=== PATIENT | female | born 1955 | race Caucasian/White ===

== ENCOUNTER 2024-10-19 05:09 | Observation (INO) ==
[2024-10-19 05:22] VITALS: BMI 28.0
--- NOTE | 2024-10-19 05:39 | DR.CP ---
HPI Time Seen Time Seen by Provider: 10/19/24 05:37 PCP Primary Care Physician: Cynthia HPI Comment HPI Comment: See orders as below. Complaint Chief Complaint Doctor Comments: Patient is a 68-year-old female in the emergency room right upper quadrant and epigastric pain since 1130 last night. Patient said pain is associated with nausea. Patient is also having lower abdominal pain for one and half week. She denies fever or dysuria. Chief Complaint:: pt ambulatory in ed with complaints of ruq pain/epigastric pain since last night around 11:30, started as indigestion and has increasingly gotten worse and has began vomiting. pt also reports lower back pain into her hips. COVID-19 Coronavirus risk:travel/contact w/high risk person: No Has patient experienced Coronavirus symptoms: No Source History Provided: Patient Mode of Arrival Mode of Arrival: Ambulatory Timing Onset of Chief Complaint: 10/18/24 PMH PMH Past Medical History: No Past Surgical History: Yes Surgical History: [employer] Surgery and Hysterectomy Family History History of Family Medical Conditions: Yes Family Medical History: Cancer and Hypertension Travel Risk Coronavirus risk:travel/contact w/high risk person: No Has patient experienced Coronavirus symptoms: No Infectious screening Have you traveled outside the country in the last 6 months?: No Isolation: Standard ROS Review of Systems Constitutional: No Symptoms Reported and Diaphoresis Eyes: No Symptoms Reported ENTM: No Symptoms Reported Respiratoy: No Symptoms Reported Cardiovascular: No Symptoms Reported Gastrointestinal/Abdominal: Abdominal Pain, Nausea and Vomiting Genitourinary: No Symptoms Reported; negative Dysuria Neurological: No Symptoms Reported; negative Headache or Dizziness Musculoskeletal: Back Pain (lower back pain.) Integumentary: No Symptoms Reported and See HPI Hematologic/Lymphatic: No Symptoms Reported Endocrine: No Symptoms Reported Psychiatric: No Symptoms Reported All Other Systems: Reviewed and Negative PE Vitals Vitals: Vital Signs Temperature 97.6 F Pulse Rate 63 Pulse Rate 69 Pulse Rate 76 Pulse Rate 67 Pulse Rate 66 Pulse Rate 65 Pulse Rate 73 Pulse Rate 81 Pulse Rate 66 Pulse Rate 67 Pulse Rate 80 Pulse Rate 65 Pulse Rate 76 Pulse Rate 68 Pulse Rate 70 Pulse Rate 97 Respiratory Rate 18 Respiratory Rate 29 Respiratory Rate 27 Respiratory Rate 22 Respiratory Rate 22 Respiratory Rate 32 Respiratory Rate 16 Respiratory Rate 18 Respiratory Rate 18 Respiratory Rate 24 Respiratory Rate 23 Respiratory Rate 23 Respiratory Rate 20 Blood Pressure 157/70 Blood Pressure 161/78 Blood Pressure 165/73 Blood Pressure 165/73 Blood Pressure 165/73 Blood Pressure 159/75 Blood Pressure 180/72 Blood Pressure 188/86 Blood Pressure 184/79 Blood Pressure 191/91 O2 Sat by Pulse Oximetry 96 O2 Sat by Pulse Oximetry 97 O2 Sat by Pulse Oximetry 96 O2 Sat by Pulse Oximetry 97 O2 Sat by Pulse Oximetry 95 O2 Sat by Pulse Oximetry 96 O2 Sat by Pulse Oximetry 96 O2 Sat by Pulse Oximetry 94 O2 Sat by Pulse Oximetry 97 O2 Sat by Pulse Oximetry 97 O2 Sat by Pulse Oximetry 98 O2 Sat by Pulse Oximetry 96 O2 Sat by Pulse Oximetry 98 O2 Sat by Pulse Oximetry 97 O2 Sat by Pulse Oximetry 98 O2 Sat by Pulse Oximetry 97 General Limitations: No Limitations General Appearance: Alert and In No Apparent Distress Head Head Exam: Normal Inspection Eyes Eye exam: Normal Appearance; negative Scleral Icterus or Conjunctival Injection ENT ENT Exam: Normal Exam, Normal Oropharynx, Normal External Ear Exam and TM's Normal Bilaterally Chest Chest Inspection: Normal Inspection and Symmetric Chest Wall Rise; negative Tenderness Respiratory Respiratory Exam: Normal Lung Sounds Bilat; negative Accessory Muscle Use, Chest Wall Tenderness or Respiratory Distress Respiratory Exam: Bilateral: Clear to Auscultation Cardiovascular Cardiovascular Exam: Regular Rate, Normal Rhythm and Normal Heart Sounds; negative Systolic Murmur or Diastolic Murmur Abdominal Exam Abdominal Exam: Normal Bowel Sounds, Soft and Tenderness Abdominal Tenderness: RUQ, Epigastrium and Moderate Extremities Extremities Exam: Normal Inspection and Normal Capillary Refill Back Back Exam: Normal Inspection; negative (R) CVA Tenderness or (L) CVA Tenderness Neurologic Neurological Exam: Alert and Oriented X3; negative Motor Sensory Deficit Psychiatric Psychiatric Exam: Normal Affect and Normal Mood Skin Skin Exam: Warm and Intact MDM Differential Diagnosis Differential Diagnosis: Gastritis (Abd pain, cholelithiasis, cholecystitis, lower back pain, UTI.) COURSE Treatment Treatment: See orders done while patient was in ER, Patient with gall stone. surgery consult obtained. She will be admitted to hospital for further management. Consultation Consultation Comments: surgery consult with dr. AGUDELO. HE WILL ADMIT PATIENT. Education/Counseling Education/Counseling: Patient and Family Educated On: Treatment and Diagnosis ROR Labs Reviewed Laboratory Results Reviewed?: Yes 10/19/24 05:35 10/19/24 05:35 Laboratory: WBC 14.3 X10^3/uL (3.6-10.0) H 10/19/24 05:35 RBC 5.59 X10^6/uL (3.5-5.4) H 10/19/24 05:35 Hgb 17.4 g/dL (12.0-16.0) H 10/19/24 05:35 Hct 50.4 % (36.0-47.0) H 10/19/24 05:35 MCV 90.2 fL (80.0-100.0) 10/19/24 05:35 MCH 31.2 pg (27.0-34.0) 10/19/24 05:35 MCHC 34.6 g/dL (33.0-35.0) 10/19/24 05:35 RDW 13.6 % (11.6-16.5) 10/19/24 05:35 Plt Count 366 X10^3/uL (150.0-450.0) 10/19/24 05:35 MPV 10.6 fL (7.4-11.0) 10/19/24 05:35 Neut % (Auto) 89.7 % (42.0-75.0) H 10/19/24 05:35 Lymph % (Auto) 7.6 % (21.0-51.0) L 10/19/24 05:35 [place] % (Auto) 1.8 % (0.0-13.0) 10/19/24 05:35 Eos % (Auto) 0.1 % (0.9-2.9) L 10/19/24 05:35 Baso % (Auto) 0.8 % (0.2-1.0) 10/19/24 05:35 Neut # (Auto) 12.8 x10^3/uL (2.2-4.8) H 10/19/24 05:35 Lymph # (Auto) 1.1 X10^3/uL (1.3-2.9) L 10/19/24 05:35 [place] # (Auto) 0.3 x10^3/uL (0.3-0.8) 10/19/24 05:35 Eos # (Auto) 0.0 x10^3/uL (0.0-0.2) 10/19/24 05:35 Baso # (Auto) 0.1 X10^3/uL (0.0-0.1) 10/19/24 05:35 Absolute Nucleated RBC 0.1 /100WBC 10/19/24 05:35 Sodium 139 mmol/L (136-145) 10/19/24 05:35 Corrected Sodium 140 mmol/L (136-145) 10/19/24 05:35 Potassium 3.6 mmol/L (3.5-5.1) 10/19/24 05:35 Chloride 102 mmol/L (98-107) 10/19/24 05:35 Carbon Dioxide 28.4 mmol/L (21-32) 10/19/24 05:35 BUN 12 mg/dL (7-18) 10/19/24 05:35 Creatinine 0.66 mg/dL (0.55-1.02) 10/19/24 05:35 Est GFR (MDRD) Af Amer > 60 (>60) 10/19/24 05:35 Est GFR (MDRD) Non-Af > 60 (>60) 10/19/24 05:35 Glucose 142 mg/dL (65-99) H 10/19/24 05:35 Calcium 9.3 mg/dL (8.5-10.1) 10/19/24 05:35 Corrected Calcium TNP 10/19/24 05:35 Total Bilirubin 0.50 mg/dL (0.2-1.0) 10/19/24 05:35 AST 12 Units/L (15-37) L 10/19/24 05:35 ALT 18 Units/L (12-78) 10/19/24 05:35 Alkaline Phosphatase 116 Units/L (46-116) 10/19/24 05:35 Creatine Kinase 49 Units/L (26-192) 10/19/24 05:35 Troponin I High Sens 6.9 ng/L (4.0-60.0) 10/19/24 05:35 Total Protein 9.6 g/dL (6.4-8.2) H 10/19/24 05:35 Albumin 4.3 g/dL (3.4-5.0) 10/19/24 05:35 Globulin 5.3 g/dL (2.5-4.5) H 10/19/24 05:35 Albumin/Globulin Ratio 0.8 Ratio (1.1-2.1) L 10/19/24 05:35 Amylase 47 Units/L (25-115) 10/19/24 05:35 Lipase 35 Units/L (16-77) 10/19/24 05:35 Specimen Type Clean catch urine 10/19/24 05:35 Urine Color Pale yellow (YELLOW) 10/19/24 05:35 Urine Appearance Clear (CLEAR) 10/19/24 05:35 Urine pH 7.0 (5.0 - 8.0) 10/19/24 05:35 Ur Specific [place] 1.015 (1.000-1.030) 10/19/24 05:35 Urine Protein 2+ (NEGATIVE) 10/19/24 05:35 Urine Glucose (UA) Negative (NEGATIVE) 10/19/24 05:35 Urine Ketones Negative (NEGATIVE) 10/19/24 05:35 Urine Blood 4+ (NEGATIVE) 10/19/24 05:35 Urine Nitrite Negative (NEGATIVE) 10/19/24 05:35 Urine Bilirubin Negative (NEGATIVE) 10/19/24 05:35 Urine Urobilinogen Normal (NORMAL) 10/19/24 05:35 Ur Leukocyte Esterase Negative (NEGATIVE) 10/19/24 05:35 Urine RBC 3-5 /HPF (0-3) A 10/19/24 05:35 Urine WBC None seen /HPF (0-5) 10/19/24 05:35 Ur Squamous Epith Cells Few /HPF (NEGATIVE) 10/19/24 05:35 Amorphous Sediment Trace /HPF (NEGATIVE) 10/19/24 05:35 Urine Bacteria Trace /HPF (NEGATIVE) 10/19/24 05:35 Ur Culture Indicated? No/not indicated 10/19/24 05:35 XRAY XRAY Interpreted by: Radiologist (Report noted.) and Self EKG Rate: 66 [place]: RAD Rhythm: NSR Block: None Hypertrophy: LAE ST: Nonsp Opioid Opioid Risk Tool Age ([place] box if 16-45): No History of Preadolescent Sexual Abuse: No Total: 0 Total Score Risk Category: Low Risk Copyright: King SELBY predicting aberrant behaviors Discharge Plan Diagnosis Discharge Problem: Adrenal nodule Cholelithiasis Qualifiers: Cholelithiasis location: gallbladder Cholecystitis presence: without cholecystitis Biliary obstruction: without biliary obstruction Qualified Code(s): K80.20 - Calculus of gallbladder without cholecystitis without obstruction Discharge Plan Patient Disposition: ADMITTED INPATIENT Condition: Stable Discharge Comment: Return to er if worse. Orders to Discharge Patient Discharge Orders: Transfer (Routine); Ordered 10/19/24 Ordered By: RADHA ALBA
[2024-10-19] MEDS: ZOFRAN INJ 4 MG VIAL IVP ONE (05:40)
[2024-10-19 05:46] LABS: BLOOD/HEMOGLOBIN,URINE 4+ (NEGATIVE); LEUKOCYTE ESTERASE ,URINE NEGATIVE (NEGATIVE); NITRITES,URINE NEGATIVE (NEGATIVE)
[2024-10-19 05:54] LABS: APPEARANCE,URINE CLEAR (CLEAR)
[2024-10-19 05:55] LABS: SQUAMOUS EPITHELIAL CELL,UR FEW /HPF (NEGATIVE)
[2024-10-19 06:01] LABS: COR NA(FOR HYPERGLY) 140 mmol/L (136-145); CREATININE 0.66 mg/dL (0.55-1.02); MEAN PLATELET VOLUME 10.6 fL (7.4-11.0); RED CELL DISTRIBUTION WIDTH 13.6 % (11.6-16.5); eGFR NON BLACK RACES > 60 (>60)
--- NOTE | 2024-10-19 06:02 | EKG ---
Test Reason : chest pain Blood Pressure : */* mmHG Vent. Rate : 66 BPM Atrial Rate : 66 BPM P-R Int : 164 ms QRS Dur : 90 ms QT Int : 426 ms P-R-T Axes : 65 91 70 degrees QTc Int : 446 ms Normal sinus rhythm Possible Left atrial enlargement Rightward axis Borderline ECG No previous ECGs available Confirmed by Lowell Srivastava MD ([id number]) on 10/19/2024 6:31:36 AM Referred By: Confirmed By: Lowell Srivastava MD
[2024-10-19] MEDS: TORADOL 60 MG VIAL IVP ONE (06:04)
[2024-10-19] MEDS: PROTONIX INJ 40 MG VIAL IVP ONE (06:04)
--- NOTE | 2024-10-19 06:53 | CT ---
EXAM: CT abdomen pelvis without contrast HISTORY: Right upper quadrant pain, epigastric pain, vomiting TECHNIQUE: Axial noncontrast images with coronal and sagittal reformats. Dose reduction procedures were used with mA/kv adjusted for body size. COMPARISON: None FINDINGS: Lung bases are clear. The liver, spleen, right adrenal gland and pancreas appear within normal limits but only to the limitations of an unenhanced examination. There is enlargement of the left adrenal gland with 2 indeterminate masses present. 1 mass measures 1.9 x 1.4 cm. The other measures 2.3 x 2 cm. Evaluation with MRI is recommended to distinguish between atypical benign adenomas and more significant neoplasms. Cholelithiasis is present. No definite findings to suggest cholecystitis at this time. If cholecystitis is a clinical consideration evaluation with gallbladder sonography is recommended for assessment of the gallbladder wall and nuclear medicine biliary scan would be of further diagnostic value in assessing cystic duct patency. No definite gastric or duodenal abnormality identified. Kidneys are unobstructed and without stones. No ureteral calculi are identified. Calcific atherosclerotic changes present in the nondilated abdominal aorta. No enlarged intraperitoneal or retroperitoneal lymphadenopathy identified. No findings to suggest enteritis, colitis, or diverticulitis. Diffuse diverticulosis coli is present. No pelvic masses, pelvic fluid, or pelvic lymphadenopathy identified. No bladder abnormality identified. No lytic or blastic skeletal lesions of significance identified. IMPRESSION: Cholelithiasis without definite evidence for cholecystitis. If cholecystitis is a strong clinical consideration further evaluation with gallbladder and biliary sonography is recommended for further evaluation of the gallbladder wall and for subtle findings of cholecystitis. Nuclear medicine biliary scan would be of further diagnostic value in assessing cystic duct patency. 2 indeterminate left adrenal nodules measuring 1.1 x 1.4 cm and 2.3 x 2 cm for which MRI is recommended in order to distinguish between atypical benign adenomas and more significant adrenal neoplasm. THIS IS AN ELECTRONICALLY VERIFIED FINAL REPORT 10/19/2024 6:50 AM - Electronically signed by Ramsey Ta MD
--- NOTE | 2024-10-19 07:59 | RAD ---
EXAM: CHEST, 1 VIEW HISTORY: PT C/O EPIGASTRIC AND CHEST PAIN, VOMITING ; HYSTERECTOMY COMPARISON: No relevant prior studies were available for comparison at the time of interpretation. TECHNIQUE: CHEST, 1 VIEW FINDINGS: Chest: Lines and tubes: Cardiac leads overlie the chest. Mediastinum: Cardiac and mediastinal shadow is within normal limits for size and contour. Pulmonary vessels: No pulmonary vascular congestion. Lung braun: No suspicious airspace opacity. Pleura: No effusion. No pneumothorax. Bones and soft tissues: No acute osseous or soft tissue abnormality. IMPRESSION: 1. No acute cardiopulmonary abnormality THIS IS AN ELECTRONICALLY VERIFIED FINAL REPORT 10/19/2024 7:56 AM - Electronically signed by Yunior Nguyen MD
[2024-10-19] MEDS ORDERED: KETAMINE HCL ONE (08:40)
[2024-10-19] MEDS ORDERED: SUPRANE IN ONE (08:40)
[2024-10-19] MEDS ORDERED: PRECEDEX INJ VIAL ONE (08:40)
[2024-10-19] MEDS: TORADOL 60 MG VIAL ONE (09:23)
[2024-10-19] MEDS: ZOFRAN INJ 4 MG VIAL ONE ×2 (09:23→12:07)
[2024-10-19] MEDS: PROTONIX INJ 40 MG VIAL ONE (09:23)
[2024-10-19] MEDS: DUONEB 0.5 MG/3 MG (3 mL) NEB ONE ×2 (09:36→09:40)
[2024-10-19] MEDS: TRANSDERM-SCOP TD ONE (11:22)
[2024-10-19] MEDS: D5 1/2 NS 1,000 ML 1,000 ML IV SCH (11:23)
[2024-10-19] MEDS: LEVAQUIN PREMIX IV 500 MG 500 MG/100 ML BAG IV SCH (11:23)
[2024-10-19] MEDS: LR 1,000 ML IV 1,000 ML IV ONE ×2 (11:53→14:44)
[2024-10-19] MEDS: BARHEMSYS INJ ONE (12:05)
[2024-10-19] MEDS: PEPCID 20 MG VIAL ONE (12:06)
[2024-10-19] MEDS: DECADRON INJ ONE (12:07)
[2024-10-19] MEDS: REGLAN INJ 10 MG VIAL ONE (12:07)
[2024-10-19] MEDS: BRIDION ONE (12:08)
[2024-10-19] MEDS: ZEMURON 100 MG VIAL ONE (12:08)
[2024-10-19] MEDS: DIPRIVAN VIAL 40 ML ONE (12:08)
[2024-10-19] MEDS: TORADOL 30 MG VIAL ONE (12:08)
[2024-10-19] MEDS: OFIRMEV IV 1000 MG VIAL 1,000 MG/100 ML VIAL IV ONE (12:08)
[2024-10-19] MEDS: FENTANYL VIAL INJ 100 mcg ONE (12:12)
[2024-10-19] MEDS: VERSED ONE (12:13)
[2024-10-19] MEDS: XYLOCAINE 2 % (PLAIN) ONE (12:14)
[2024-10-19] MEDS ORDERED: TRANSDERM-SCOP PRN (12:15)
[2024-10-19] MEDS: DANTRIUM IVP PRN (12:15)
[2024-10-19] MEDS: PEPCID 20 MG VIAL IVP PRN (12:16)
[2024-10-19] MEDS: ZOFRAN INJ 4 MG VIAL IVP PRN ×2 (12:16→19:39)
[2024-10-19] MEDS: DECADRON INJ IVP PRN (12:16)
[2024-10-19] MEDS: REGLAN INJ 10 MG VIAL IVP PRN (12:16)
[2024-10-19] MEDS: BACTROBAN TOPICAL OINT ONE (13:14)
[2024-10-19] MEDS: LR 1,000 ML IV 1,000 ML IV PRN (13:30)
[2024-10-19] MEDS: VERSED IVP PRN (13:35)
[2024-10-19] MEDS ORDERED: XYLOCAINE 2 % (PLAIN) PRN (13:38)
[2024-10-19] MEDS: FENTANYL VIAL INJ 100 mcg IVP PRN (13:40)
[2024-10-19] MEDS: ZEMURON 100 MG VIAL IVP PRN (13:40)
[2024-10-19] MEDS: PRECEDEX INJ VIAL IVP PRN (13:44)
[2024-10-19] MEDS: KETAMINE HCL IV PRN (13:44)
[2024-10-19] MEDS: PROPOFOL IVP PRN (13:44)
[2024-10-19] MEDS: MARCAINE 0.5% ONE (13:55)
[2024-10-19] MEDS: OFIRMEV IV 1000 MG VIAL 1,000 MG/100 ML VIAL IV PRN (14:06)
[2024-10-19] MEDS: TORADOL 30 MG VIAL IVP PRN (14:06)
[2024-10-19] MEDS: DILAUDID INJ IVP PRN ×2 (14:08→19:39)
[2024-10-19] MEDS: NORMODYNE INJ 20 MG VIAL IVP PRN (14:09)
[2024-10-19] MEDS: DIPRIVAN VIAL 20 ML ONE ×2 (14:14→14:29)
[2024-10-19] MEDS: NORMODYNE INJ 20 MG VIAL ONE (14:14)
[2024-10-19] MEDS ORDERED: REGLAN INJ 10 MG VIAL IVP PRN (14:25)
[2024-10-19] MEDS ORDERED: BENADRYL INJ 50 MG VIAL IVP PRN (14:25)
[2024-10-19] MEDS ORDERED: ZOFRAN INJ 4 MG VIAL IVP PRN (14:25)
[2024-10-19] MEDS ORDERED: DILAUDID INJ IVP PRN (14:25)
[2024-10-19] MEDS ORDERED: BARHEMSYS INJ IVP PRN (14:25)
[2024-10-19] MEDS: BRIDION IVP PRN (14:55)
[2024-10-19] MEDS: DILAUDID INJ ONE (21:08)
[2024-10-20 06:00] LABS: MEAN PLATELET VOLUME 10.7 fL (7.4-11.0); RED CELL DISTRIBUTION WIDTH 13.7 % (11.6-16.5)
[2024-10-20 06:17] LABS: COR CA(FOR HYPOALB) 9.1 mg/dL (8.5-10.1); COR NA(FOR HYPERGLY) 135 mmol/L (136-145); CREATININE 0.66 mg/dL (0.55-1.02); eGFR NON BLACK RACES > 60 (>60)
[2024-10-20] MEDS ORDERED: CONSULT PHARMACY - POTASSIUM & MAGNESIUM XX SCH (07:00)
[2024-10-20 07:52] VITALS: BP 130/60; PULSE 68; RESP 19; TEMP 97.5; O2SAT 97
[2024-10-20] MEDS: MAG-OX TAB PO SCH (08:19)
[2024-10-20] MEDS: K-DUR TAB 20 MEQ PO SCH (08:19)
[2024-10-20] MEDS: NICOTINE PATCH TD SCH (09:17)
== END 2024-10-20 09:50 | disposition home or self-care (01) ==
LOC: ER 05:09 → MED/SURG 05:09
PROVIDERS: ADMIT Surgery; ATTEND Surgery
DX: R10.13 Epigastric pain; R07.89 Other chest pain; M54.59 Other low back pain; E83.42 Hypomagnesemia; R11.2 Nausea with vomiting, unspecified; R10.11 Right upper quadrant pain; E87.1 Hypo-osmolality and hyponatremia; Z72.0 Tobacco use; K80.01 Calculus of gallbladder with acute cholecystitis with obstruction; E27.8 Other specified disorders of adrenal gland; R73.09 Other abnormal glucose; K82.1 Hydrops of gallbladder